=== PATIENT | male | born 1955 | race Caucasian/White ===

== ENCOUNTER 2022-08-01 08:30 | Outpatient (RCR) | payer MEDICARE, BC, SELFPAY | END 2022-11-07 23:59 | disposition home or self-care (01) | PROVIDERS: PCP Family Medicine; Visit Provider Family Medicine | DX: M25.561 Pain in right knee (principal); Z51.89 Encounter for other specified aftercare | CPT/HCPCS: 97110; 97140; 97162 ==

== ENCOUNTER 2023-09-11 07:55 | Emergency (ER) | payer MEDICARE, BC, SELFPAY ==
[2023-09-11 08:01] VITALS: BP 175/91; PULSE 69; RESP 20; TEMP 36.6; O2SAT 96; BMI 37.7
--- NOTE | 2023-09-11 08:07 | ED.GENADULT ---
HPI - General Adult General Time Seen by Provider: 08:08 Date Seen: 09/11/23 Chief complaint: Extremity Pain/Injury, Upper Stated complaint: left shoulder pain since july Time Seen by Provider: 09/11/23 07:58 Source: patient and RN notes reviewed Mode of arrival: ambulatory Limitations: no limitations History of Present Illness HPI narrative: This 68yo male is coming into the ED with complaint of left shoulder pain for about a month. This started about a month ago after he was attempting to get his trailer unhooked from the tractor. The hitch was stuck and he pulled really hard. No trauma like falling on this shoulder, was not bothering him before this. Last night couldn't sleep due to discomfort in the shoulder. No numbness or tingling. Cannot lift arm above head now, very painful. Took 2 ibuprofen this am. Sees Dr. Pineda in clinic at [facility]. Related Data Home Medications ?Medication ?Instructions ?Recorded ?Confirmed amlodipine 5 mg tablet 5 mg PO DAILY 09/11/23 09/11/23 aspirin 81 mg tablet,delayed 81 mg PO DAILY 09/11/23 09/11/23 release (Adult Low Dose Aspirin) atorvastatin 80 mg tablet 80 mg PO DAILY 09/11/23 09/11/23 clopidogrel 75 mg tablet 75 mg PO DAILY 09/11/23 09/11/23 mirtazapine 7.5 mg tablet 7.5 mg PO QPM 09/11/23 09/11/23 tamsulosin 0.4 mg capsule mg PO DAILY 09/11/23 trazodone 50 mg tablet mg PO 09/11/23 Previous Rx's ?Medication ?Instructions ?Recorded oxycodone 5 mg tablet 5 mg PO QHS PRN pain #7 tabs 09/11/23 Allergies Allergy/AdvReac Type Severity Reaction Status Date / Time No Known Drug Allergies Allergy Verified 09/11/23 07:59 Review of Systems Narrative: As per HPI. Exam Const: Vital Signs, click to edit/add: Vital Signs - 24 hr 09/11/23 08:01 Temperature 98 F Pulse Rate [Pulse Oximeter] 69 Respiratory Rate 20 Blood Pressure [Ri ght Upper Arm] 175/91 H Pulse Oximetry 96 Oxygen Delivery Me thod Room Air This 62-year-old male is alert, interactive, no apparent distress. He is ambulatory into the ED of his own accord with normal gait. On inspection of his shoulders, note no asymmetry, no erythema over the skin, no skin changes. He has no point tenderness over the clavicle, AC joint, no specific tenderness or the glenohumeral joint. I note no effusion over the glenohumeral joint. He can forward flex at the shoulder without difficulty but arc of abduction starts to become painful probably about 80?, cannot get him over 90?. He is able to reach behind his back with the shoulder. Testing of his supraspinatus shows no give way of the strength testing but it is definitely more painful on the left versus the right. Strength throughout his upper extremities is 5/5 and symmetric, normal pulses and skin coloration/warmth. No sensory changes noted. Documenting provider has reviewed patient's vital signs: yes Course Course ED Course: Reviewed with patient that I certainly suspect rotator cuff pathology. There can be inflammation such as bursitis, tendinitis or even degenerative partial ligamentous tears of the rotator cuff. I do not feel he exhibits clinical exam with a full rotator cuff tear. We did discuss that MRI may be indicated in the future but it is not something we do emergently out of the ER. We will obtain baseline x-rays, see the underlying architecture of the shoulder. He can follow up with his primary in clinic or see orthopedics. I will provide him the number for Orthopedics to follow up if he should choose to do that. We did discuss physical therapy, potential injection of the shoulder with orthopedics if they felt clinically indicated. Did consider radiculopathic disease coming from the neck but clinically his exam is quite consistent with pathology from the shoulder, specifically rotator cuff. Reevaluation(s) Time of Reevaluation #1: 08:58 Reevaluation #1: Reviewed x-ray reports with patient. This most definitely his rotator cuff pathology for him. 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 Will provide him some oxycodone for bedtime, Tylenol during the day. We reviewed pendulum exercises, limitations of activities of his shoulder that cause pain. For he will need to follow up with Orthopedics for further evaluation and management. He declines a sling. We did discuss frozen shoulder and the pendulum exercises in helping to prevent this. I would recommend limiting shoulder activities that are painful to him at this time. Vital Signs Vital signs: Initial Vital Signs Temperature 98 F 09/11/23 08:01 Temperature Source Temporal Artery Scan 09/11/23 08:01 Pulse Rate 69 09/11/23 08:01 Respiratory Rate 20 09/11/23 08:01 Blood Pressure 175/91 H 09/11/23 08:01 Blood Pressure Mean 119 H 09/11/23 08:01 Pulse Oximetry 96 09/11/23 08:01 Oxygen Delivery Method Room Air 09/11/23 08:01 Vital Signs Temperature 98 F 09/11/23 08:01 Pulse Rate 69 09/11/23 08:01 Respiratory Rate 20 09/11/23 08:01 Blood Pressure 175/91 H 09/11/23 08:01 Pulse Oximetry 96 09/11/23 08:01 Oxygen Delivery Method Room Air 09/11/23 08:01 Temperature 98 F 09/11/23 08:01 Pulse Rate 69 09/11/23 08:01 Respiratory Rate 20 09/11/23 08:01 Blood Pressure 175/91 H 09/11/23 08:01 Pulse Oximetry 96 09/11/23 08:01 Oxygen Delivery Method Room Air 09/11/23 08:01 Medical Decision Making Imaging Data XR left shoulder: Attestation: I have reviewed the pertinent imaging results. My impression: Did visualize shoulder films, await Radiology over-read. Radiologist's impression: Patient: SAURABH VIDAL Facility:?[facility] Patient ID:?[id number] Site Patient ID:?[id number]. Site :?[id number] Study:?XRay-Shoulder Left Shoulder 3V-09/11/2023 8:42:25 AM Ordering Physician:Radha Alvarez Final Report: Indication: Shoulder pain from injury in July. Technique: Three view(s) of the left shoulder. Comparison: None available. Findings: There is mild widening of the acromioclavicular joint, which measures 11 mm. No elevation of the distal clavicle. No acute fracture is seen. No dislocation. There is mild flattening and irregularity of the superior humeral head at the greater tuberosity, which raises concern for Hill-Sachs deformity. In this region, there is amorphous calcification measuring 1.4 cm likely representing calcium hydroxyapatite deposition. There is mild glenohumeral and acromioclavicular marginal osteophytes. Visualized lung is clear. Impression: 1. No definite fracture is identified. 2. Query Hill-Sachs deformity of the humeral head. Recommend correlation with history of prior glenohumeral dislocation. 3. 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 Dictated by Shireen Mccord MD @ 09/11/2023 8:46:52 AM (Electronic Signature) Critical Care Time Critical Care Time Critical Care Time: No Discharge Plan Discharge Clinical Impression: Acute pain of left shoulder Patient Disposition: Home, Self-Care Condition: Stable Instructions: Rotator Cuff Injury (ED), Shoulder Pain (ED) Additional Instructions: Take Tylenol 1000 mg 3 times a day baseline for pain. Can use the oxycodone at bedtime to help you sleep. This is a narcotic, can be constipating and you definitely should not operate machinery or drive within 6-8 hours of use. You are on aspirin and Plavix which limits the use of NSAIDs due to safety profile. Do recommend following up with Orthopedics, call the clinic today to get a follow-up appointment. Phone number is [phone]. Activity Level: Activity as Tolerated Prescriptions: New oxycodone 5 mg tablet 5 mg PO QHS PRN (Reason: pain) Qty: 7 0RF No Action atorvastatin 80 mg tablet 80 mg PO DAILY trazodone 50 mg tablet PO clopidogrel 75 mg tablet 75 mg PO DAILY amlodipine 5 mg tablet 5 mg PO DAILY tamsulosin 0.4 mg capsule PO DAILY mirtazapine 7.5 mg tablet 7.5 mg PO QPM aspirin [Adult Low Dose Aspirin] 81 mg tablet,delayed release (DR/EC) 81 mg PO DAILY Follow Up/Referrals: Thomas Pineda MD [Primary Care Provider] - Stand Alone Forms: [employer] Info Instructions
--- NOTE | 2023-09-11 08:12 | CRLHL7_ITS ---
For Patients: As a result of the Century Cures Act, medical imaging exams and procedure reports are released immediately into your electronic medical record. You may view this report before your referring provider. If you have questions, please contact your health care provider. Indication: Shoulder pain from injury in July. Technique: Three view(s) of the left shoulder. Comparison: None available. Findings: There is mild widening of the acromioclavicular joint, which measures 11 mm. No elevation of the distal clavicle. No acute fracture is seen. No dislocation. There is mild flattening and irregularity of the superior humeral head at the greater tuberosity, which raises concern for Hill-Sachs deformity. In this region, there is amorphous calcification measuring 1.4 cm likely representing calcium hydroxyapatite deposition. There is mild glenohumeral and acromioclavicular marginal osteophytes. Visualized lung is clear. Impression: 1. No definite fracture is identified. 2. Query Hill-Sachs deformity of the humeral head. Recommend correlation with history of prior glenohumeral dislocation. 3. 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 Dictated by Shireen Mccord MD @ 09/11/2023 8:46:52 AM (Electronically Signed)
== END 2023-09-11 09:24 | disposition home or self-care (01) ==
PROVIDERS: Emergency Provider Family Medicine; PCP Family Medicine
DX: M25.512 Pain in left shoulder (principal)
CPT/HCPCS: 73030; 99283

== ENCOUNTER 2025-04-01 06:28 | Outpatient (CLI) | payer MEDICARE, BC, SELFPAY ==
--- NOTE | 2025-04-01 07:55 | P.ANES_ITS ---
Anesthesia Charges Start Date/Time Anesthesia Start Date: 04/01/25 Anesthesia Start Time: 07:21 Stop Date/Time Anesthesia Stop Date: 04/01/25 Anesthesia Stop Time: 07:44 Coding CPT Codes CPT Codes: ANES LWR INTST NDSC NOS - 23463 ([id number]) P3 - PATIENT W/SEVERE SYS DISEASE, QK - ELECTRICAL MANAGER 2-4 CNCRNT ANES PROC, QX - HOUSE CARPENTER HELPER SVC W/ MD MED DIRECTION
--- NOTE | 2025-04-01 07:55 | W.ANESCHARGE ---
Anesthesia Charges Start Date/Time Anesthesia Start Date: 04/01/25 Anesthesia Start Time: 07:21 Stop Date/Time Anesthesia Stop Date: 04/01/25 Anesthesia Stop Time: 07:44 Coding CPT Codes CPT Codes: ANES LWR INTST NDSC NOS - [id number] ([id number]) P3 - PATIENT W/SEVERE SYS DISEASE, QK - FRUIT EXPRESS AGENT 2-4 CNCRNT ANES PROC, QX - LOG INSPECTOR SVC W/ MD MED DIRECTION
--- NOTE | 2025-04-01 08:30 | P.ANES_ITS ---
Anesthesia Charges Start Date/Time Anesthesia Start Date: 04/01/25 Anesthesia Start Time: 07:21 Stop Date/Time Anesthesia Stop Date: 04/01/25 Anesthesia Stop Time: 07:44 Coding CPT Codes CPT Codes: ANES LWR INTST NDSC NOS - [id number] ([id number]) QK - DRAW OPERATOR 2-4 CNCRNT ANES PROC, QX - MED CARE MANAGER SVC W/ MD MED DIRECTION, P3 - PATIENT W/SEVERE SYS DISEASE
--- NOTE | 2025-04-01 08:30 | W.ANESCHARGE ---
Anesthesia Charges Start Date/Time Anesthesia Start Date: 04/01/25 Anesthesia Start Time: 07:21 Stop Date/Time Anesthesia Stop Date: 04/01/25 Anesthesia Stop Time: 07:44 Coding CPT Codes CPT Codes: ANES LWR INTST NDSC NOS - 18830 ([id number]) QK - ELECTRONIC DATA INTERCHANGE SPECIALIST 2-4 CNCRNT ANES PROC, QX - CHILDREN LIBRARIAN SVC W/ MD MED DIRECTION, P3 - PATIENT W/SEVERE SYS DISEASE
== END 2025-04-01 06:29 | disposition home or self-care (01) ==
PROVIDERS: PCP Family Medicine; Visit Provider Internal Medicine Gastroenterology
DX: Z12.11 Encounter for screening for malignant neoplasm of colon (principal); D12.3 Benign neoplasm of transverse colon; D12.8 Benign neoplasm of rectum; K64.4 Residual hemorrhoidal skin tags
CPT/HCPCS: 00811; 00812; 45385; J2704